=== PATIENT | female | born 1995 | race African-American/Black ===

== ENCOUNTER 2020-10-17 18:01 | Emergency (ER) | payer OTHER ==
[~2020-10-17] VITALS: Ht 167.6 cm; Wt 67.8 kg
--- NOTE | 2020-10-17 19:20 | NUR ---
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
--- NOTE | 2020-10-17 19:25 | NUR ---
Took claritin [employer] did not take any benadryl. Pt in NAD. connected to cont pulse ox. PA-C at bedside for eval.
--- NOTE | 2020-10-17 19:32 | NUR ---
JAGDISH to order benadryl, pepcid, prednisone.
[2020-10-17] MEDS ORDERED: FAMOTIDINE 20 MG TABLET ONE (19:36)
[2020-10-17] MEDS ORDERED: DIPHENHYDRAMINE 50 MG CAPSULE ONE (19:36)
[2020-10-17] MEDS ORDERED: DIPHENHYDRAMINE 25 MG CAPSULE PO ONE (20:00)
[2020-10-17] MEDS ORDERED: FAMOTIDINE 20 MG TABLET PO ONE (20:00)
[2020-10-17] MEDS ORDERED: PLEASE ENTER ALLERGIES MC SCH (20:00)
[2020-10-17 20:44] VITALS: BP 125/87
== END 2020-10-17 20:45 | disposition home or self-care (01) ==
LOC: ED 18:31
DX: T78.3XXA Angioneurotic edema, initial encounter (principal); R22.0 Localized swelling, mass and lump, head; M79.89 Other specified soft tissue disorders
CPT/HCPCS: 99284; J7512; Q0163